=== PATIENT | female | born 1975 | race African-American/Black ===

== ENCOUNTER 2019-08-16 10:05 | Outpatient (CLI) | payer MEDICARE ==
--- NOTE | 2019-08-16 11:13 | RAD ---
LUMBAR SPINE RADIOGRAPHS 2 VIEWS: DATE: 08/16/2019. PROVIDED CLINICAL HISTORY: Back pain. FINDINGS: Comparison 03/04/2005. Evaluation is limited by patient body habitus. Lumbar alignment appears norm al. Vertebral body heights appear preserved. Intervertebral disk space heights appear preserved. E nd plate degenerative changes and facet arthritis are noted involving the lower lumbar spine. IMPRESSION: Lower lumbar spine disk and facet degenerative change. POS: [facility]
== END 2019-08-16 10:06 | disposition home or self-care (01) ==
LOC: BICRAD 10:05
PROVIDERS: ATTEND Family Medicine
DX: M54.9 Dorsalgia, unspecified (principal); M47.816 Spondylosis without myelopathy or radiculopathy, lumbar region
CPT/HCPCS: 72100